=== PATIENT | male | born 1990 | race Hispanic/Latino ===

== ENCOUNTER 2020-11-03 13:04 | Emergency (ER) | payer OTHER ==
--- NOTE | 2020-11-03 15:24 | ER ---
Nurse's Notes [facility] Name: Pj Hughes Age: 30 yrs Sex: Male : 1990 Arrival Date: 11/03/2020 Time: 13:07 Bed Waiting Private MD: Diagnosis: Presentation: 11/03 13:28 Chief complaint: Patient states: SOB, cough, and sore throat x 1 week. aa5 13:28 Coronavirus screen: Client denies travel out of the [place] in the last 14 days. cough aa5 unrelated to allergies, shortness of breath, Client presents with at least one sign or symptom that may indicate coronavirus-19. Standard/surgical mask placed on the client. Provider contacted for isolation considerations. Ebola Screen: Patient negative for fever greater than or equal to 101.5 degrees Fahrenheit, and additional compatible Ebola Virus Disease symptoms. Initial Sepsis Screen: Does the patient meet any 2 criteria? No. Patient's initial sepsis screen is negative. Does the patient have a suspected source of infection? No. Patient's initial sepsis screen is negative. Risk Assessment: Do you want to hurt yourself or someone else? Patient reports no desire to harm self or others. Onset of symptoms was September 2020. 13:28 Method Of Arrival: Ambulatory aa5 13:28 Acuity: SAMANTHA 3 aa5 Historical: - Allergies: 13:28 Sulfa (Sulfonamide Antibiotics); aa5 - PMHx: 13:28 None; aa5 - PSHx: 13:28 None; aa5 - Immunization history:: Flu vaccine is not up to date. - Social history:: Smoking status: Patient denies any tobacco usage or history of. Vital Signs: 13:28 BP 110 / 65; Pulse 86; Resp 18 S; Temp 98.5(O); Pulse Ox 98% on R/A; Weight 70.31 kg aa5 (R); Height 5 ft. 9 in. (175.26 cm) (R); Pain 5/10; 13:28 Body Mass Index 22.89 (70.31 kg, 175.26 cm) aa5 ED Course: 13:07 Patient arrived in ED. rg4 13:27 Arm band placed on. aa5 13:30 Triage completed. aa5 Administered Medications: No medications were administered Outcome: 15:23 Patient left the ED. dm5 Signatures: Rachel Pride, RN RN dm5 Ifeoma Sykes, RN RN aa5 Margi Soto4
[2020-11-03 15:38] VITALS: BP 110/65; TEMP 98.5; O2SAT 98
== END 2020-11-03 15:23 | disposition left against medical advice (07) ==
LOC: ER 13:04
DX: Z53.21 Procedure and treatment not carried out due to patient leaving prior to being seen by health care provider (principal)
CPT/HCPCS: 99281

== ENCOUNTER 2021-03-10 17:01 | Emergency (ER) | payer OTHER, SELFPAY ==
--- OUTSIDE RECORDS SUMMARY | 2021-03-10 17:13 | XMS REPORT | Continuity of Care Document ---
:1990 Author Organization [facility] t Address [address] [place] [address] Care Team Providers Name Role Phone Asked, No Pcp Primary Care Physician Unavailable Ángel UMANA Attending Clinician Payers Payer Name Policy Type Policy Effective Date Expiration Date Sour ce Number [facility] [id number] 2020 [place] CHOICE 00:00:00 [facility]ET[facility]AC[facility]x [id number] 2020-Pr esentExchange Problems This patient has no known problems. Allergies, Adverse Reactions, Alerts Allergy Allergy Status Severity Reaction(s) Onset Inactive Treating Comm ents Source Name Type Date Date Clinician Sulfa Propensi Active Anaphylaxis Keyur feliciano (Sulfona ty to 04 Methodi mide adverse 00:00: st Antibiot reaction 00 ics) s to drug Social History Social Habit Start Date Stop Date Quantity Comments Source Tobacco use and 2020-11-03 2020-11-03 Never used [facility] ethodist exposure 00:00:00 00:00:00 Alcohol intake 2020-11-03 2020-11-03 Current drinker [place] [facility] 00:00:00 00:00:00 of alcohol (finding) Sex Ass[birth year] [facility] ethodist 00:00:00 00:00:00 Smoking Status Start Date Stop Date Source Current every day smoker 2020-11-03 00:00:00 Keyur feliciano [facility] Medications Ordered Filled Start Stop Current Ordering Indication Dosage Frequency Signature Comments Components Source Medication Medication Date Date Medication? Clinician (SIG) Name Name azithromyci Yes 250mg QD Take 1 Keyur jodie n 1-04 tablet Methodi (Zithromax 00:00: ([address] Z-Hayes) 250 00 total) by MG tablet mouth daily. Take 2 tablets the first day, then 1 tablet daily for 4 days. benzonatate 100mg Q8H Take 1 Craig zambrano (TESSALON) 11-03 capsule Metho di 100 MG 00:00: 23:59 ([address] capsule 00 :00 total) by mouth every 8 (eight) hours for 30 days. Vital Signs Vital Name Observation Time Observation Value Comments Source Systolic blood 2020-11-03 18:43:00 114 mm[Hg] Davon n [facility] pressure Diastolic blood 2020-11-03 18:43:00 61 mm[Hg] Mindy nicholson [facility] pressure Heart rate 2020-11-03 18:43:00 65 /min Bradley Pozo Body temperature 2020-11-03 18:43:00 36.94 Aminata Th[place]ago [place] [facility] Respiratory rate 2020-11-03 18:43:00 16 /min Thi[facility] [place] [facility] Oxygen saturation in 2020-11-03 18:43:00 98 /min Bradley Pozo Arterial blood by Pulse oximetry Body height 2020-11-03 17:31:00 175.3 cm Bradley Pozo Body weight 2020-11-03 17:31:00 68.04 kg Bradley Pozo BMI 2020-11-03 17:31:00 22.15 kg/m2 Bradley Pozo Procedures Procedure Date / Time Performed Performing Clinician Sourc e RESPIRATORY PATHOGEN 2020-11-03 17:40:00 Orlin Chilel PANEL WITH COVID-19 XR CHEST 1 VW 2020-11-03 17:39:07 Orlin Chilel odist Plan of Care Planned Activity Planned Date Details Comments Source Future Scheduled 2021-05-31 INFLUENZA VACCINE Davon reeves [facility] Test 00:00:00 [code = INFLUENZA VACCINE] Future Scheduled 2006 Hepatitis C Bradley ruby Test 00:00:00 screening (procedure) [code = 915963371] Future Scheduled 2004 COVID-19 VACCINE (1) Keyur feliciano [facility] Test 00:00:00 [code = COVID-19 VACCINE (1)] Encounters Start End Encounter Admission Attending Care Care Encounter Source Date/Time Date/Time Type Type Clinicians Facility Department ID 2020-11-03 2020-11-03 Emergency [facility] CHILEL [facility] [id number] [place] 00:00:00 00:00:[address] Results Test Description Test Time Test Comments Results Result [facility] e Comments XR Chest 1 Vw [facility] [place] [address] 17:53:56 Incoming - 11/03/2020 5:57 PM CST EXAMINATION: XR CHEST 1 VWINDICATION: coughCOMPARISON: 07/26/2006IMPRESSION:No acute airspace disease or pulmonary edema. No pleural effusion or pneumothorax.Normal cardiomediastinal silhouette.[id number]
[2021-03-10] MEDS ORDERED: LIDOCAINE 1% MPF 5 ML VIAL ONE (18:03)
[2021-03-10] MEDS ORDERED: TETANUS & DIPHTHERIA TOX,ADULT 0.5 ML VIAL ONE (18:03)
--- NOTE | 2021-03-10 18:14 | ER ---
Nurse's Notes [facility] Name: Pj Hughes Age: 30 yrs Sex: Male : 1990 Arrival Date: 03/10/2021 Time: 17:01 Bed 12 Private MD: Diagnosis: Laceration without foreign body of left hand Presentation: 03/10 17:18 Chief complaint: Patient states: i was opening something with a box knife, it slipped tw2 and got me right on the top of my LEFT hand. i had super glue on it and then my mom told me it would get infected so i pulled it off and then it started gushing blood. it happened about an hour ago. Coronavirus screen: At this time, the client does not indicate any symptoms associated with coronavirus-19. Ebola Screen: Patient denies travel to an Ebola-affected area in the 21 days before illness onset. Complicating Factors: There are no complicating factors for this patient. Initial Sepsis Screen: Does the patient meet any 2 criteria? No. Patient's initial sepsis screen is negative. Does the patient have a suspected source of infection? No. Patient's initial sepsis screen is negative. Risk Assessment: Do you want to hurt yourself or someone else? Patient reports no desire to harm self or others. Onset of symptoms was March 10, 2021 at 17:20. 17:18 Method Of Arrival: Ambulatory tw2 17:18 Acuity: SAMANTHA 4 tw2 Triage Assessment: 17:21 General: Appears in no apparent distress. Behavior is calm, cooperative, appropriate tw2 for age. Injury Description: Laceration sustained to dorsum of left hand. Historical: - Allergies: 17:21 Sulfa (Sulfonamide Antibiotics); tw2 - Home Meds: 17:21 Zoloft Oral [Active]; Seroquel Oral [Active]; tw2 - PMHx: 17:21 Depression; Schizophrenia; tw2 - PSHx: 17:21 None; tw2 - Immunization history:: Last tetanus immunization: unknown. - Social history:: Smoking status: . Screenin:35 Abuse screen: Denies threats or abuse. Denies injuries from another. Nutritional ca1 screening: No deficits noted. Tuberculosis screening: No symptoms or risk factors identified. Fall Risk None identified. Assessment: 17:35 General: Appears in no apparent distress. comfortable, Behavior is calm, cooperative, ca1 appropriate for age. Pain: Complains of pain in dorsum of left hand Pain currently is 02 out of 10 on a pain scale. Neuro: Level of Consciousness is awake, alert, obeys commands, Oriented to person, place, time, situation. Derm: Skin is healthy with good turgor, Skin is pink, warm \T\ dry. Musculoskeletal: Circulation, motion, and sensation intact. Capillary refill < 3 seconds. Injury Description: Laceration sustained to dorsum of left hand is clean, 0.5 to 2.5 cm long, bleeding moderately, was sustained 30-60 minutes ago. is bleeding a small amount. 18:24 Reassessment: Patient appears in no apparent distress at this time. Patient is alert, ca1 oriented x 3, equal unlabored respirations, skin warm/dry/pink. Vital Signs: 17:18 BP 99 / 66; Pulse 65; Resp 17; Temp 97.9(TE); Pulse Ox 98% on R/A; tw2 18:24 BP 106 / 72; Pulse 62; Resp 16 S; Pulse Ox 99% on R/A; ca1 ED Course: 17:01 Patient arrived in ED. mr 17:20 Triage completed. tw2 17:21 Arm band placed on. tw2 17:35 Hannah Roblero, RN is Primary Nurse. ca1 17:35 Patient has correct armband on for positive identification. ca1 17:38 Mony Hoff FNP-C is [facility]. kb 17:38 Floyd Houser MD is Attending Physician. kb 18:00 Patient did not have IV access during this emergency room visit. Wound care: to ca1 laceration located on dorsum of left hand was cleaned with Hibiclens, Patient tolerated well. 18:21 Assist provider with laceration repair on dorsum of left hand that was 2.5 cm. or less ca1 using sutures. Set up tray. Performed by Mony LR Dressed with 4X4s, Rukhsana, Patient tolerated well. 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 Exp: ca1 04/05/2022. Lot #: [id number]. } Route: IM; Site: left deltoid; 18:20 Follow up: Response: No adverse reaction ca1 18:05 Drug: Lidocaine (1 %) 1 vials {Note: by NP. Ariana} Volume: 5 ml; Route: Infiltration;ca1 Outcome: 18:12 Discharge ordered by MD. puckett 18:24 Discharged to home ambulatory. ca1 18:24 Condition: stable 18:24 Discharge instructions given to patient, Instructed on discharge instructions, follow up and referral plans. wound care, Demonstrated understanding of instructions, follow-up care, wound care. 18:24 Patient left the ED. ca1 Signatures: Mony Hoff, ADELINE NAJERA-Mary Sidhu mr Martita Butler, RN RN tw2 Hannah Roblero RN RN ca1
--- NOTE | 2021-03-10 18:14 | EDPHYS ---
Physician Documentation [facility] Name: Pj Hughes Age: 30 yrs Sex: Male : 1990 Arrival Date: 03/10/2021 Time: 17:01 Bed 12 Private MD: ED Physician Floyd Houser HPI: 03/10 18:21 This 30 yrs old Male presents to ER via Ambulatory with complaints of kb Laceration To Hand. 18:21 The patient has a laceration related to: working, occurred at work, and there are no kb complicating factors. The injury was accidental. The laceration(s) is(are) located on the dorsum of left hand. Onset: The symptoms/episode began/occurred today. Associated signs and symptoms: Pertinent positives: heavy bleeding, Pertinent negatives: deformity, dizziness, loss of consciousness, numbness distal to injury, suspected foreign body. The patient has not experienced similar symptoms in the past. The patient has not recently seen a physician. Pt reports he cut his hand at work and it was bleeding a lot so he came to get it looked at. Historical: - Allergies: 17:21 Sulfa (Sulfonamide Antibiotics); tw2 - Home Meds: 17:21 Zoloft Oral [Active]; Seroquel Oral [Active]; tw2 - PMHx: 17:21 Depression; Schizophrenia; tw2 - PSHx: 17:21 None; tw2 - Immunization history:: Last tetanus immunization: unknown. - Social history:: Smoking status: . ROS: 18:17 Constitutional: Negative for fever, chills, and weight loss, MS/Extremity: Negative for kb injury and deformity. 18:17 Skin: Positive for laceration(s), of the dorsum of left hand. 18:17 All other systems are negative. Exam: 18:17 Constitutional: This is a well developed, well nourished patient who is awake, alert, kb and in no acute distress. Head/Face: Normocephalic, atraumatic. ENT: Moist Mucous membranes Respiratory: Respirations even and unlabored. No increased work of breathing, no retractions or nasal flaring. MS/ Extremity: Pulses equal, no cyanosis. Neurovascular intact. Full, normal range of motion. Neuro: Awake and alert, GCS 15, oriented to person, place, time, and situation. Moves all extremities. Normal gait. Psych: Awake, alert, with orientation to person, place and time. Behavior, mood, and affect are within normal limits. 18:17 Skin: injury, laceration(s), the wound is approximately 1.5 cm(s), of the dorsum of left hand, that can be described as clean, no foreign body, linear, without bleeding. Vital Signs: 17:18 BP 99 / 66; Pulse 65; Resp 17; Temp 97.9(TE); Pulse Ox 98% on R/A; tw2 18:24 BP 106 / 72; Pulse 62; Resp 16 S; Pulse Ox 99% on R/A; ca1 Laceration: 18:11 Wound Repair of 1.5cm ( 0.6in ) subcutaneous laceration to dorsum of left hand. Linear kb shaped.. Distal neuro/vascular/tendon intact. Anesthesia: Wound infiltrated with 1 mls of 1% lidocaine. Wound prep: Moderate cleansing with hibiclenz by me, Wound irrigation with saline by me. Skin closed with 2 5-0 Prolene using simple sutures and sterile technique. Patient tolerated well. MDM: 17:38 Patient medically screened. kb 18:12 Data reviewed: vital signs, nurses notes. Data interpreted: Pulse oximetry: on room air kb is 98 %. Interpretation: normal. Counseling: I had a detailed discussion with the patient and/or guardian regarding: the historical points, exam findings, and any diagnostic results supporting the discharge/admit diagnosis, the need for outpatient follow up, a family practitioner, to return to the emergency department if symptoms worsen or persist or if there are any questions or concerns that arise at home. 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 Exp: ca1 04/05/2022. Lot #: [id number]. } Route: IM; Site: left deltoid; 18:20 Follow up: Response: No adverse reaction ca1 18:05 Drug: Lidocaine (1 %) 1 vials {Note: by H[address].} Volume: 5 ml; Route: Infiltration;ca1 Disposition: 03/10/21 18:12 Discharged to Home. Impression: Laceration without foreign body of left hand. - Condition is Stable. - Discharge Instructions: Laceration Care, Adult, [id number]. - Medication Reconciliation Form, Thank You Letter, Antibiotic Education, Prescription Opioid Use, Work release form form. - Follow up: Emergency Department; When: As needed; Reason: Worsening of condition. Follow up: Private Physician; When: 2 - 3 days; Reason: Recheck today's complaints, Continuance of care, Re-evaluation by your physician. Addendum: 03/11/2021 19:05 Co-signature as Attending Physician, Floyd Houser MD. r n Signatures: Mony Hoff, DIRECTOR [employer]-C DIRECTOR FEDERAL-Ckb Floyd Houser MD MD rn Martita Butler RN RN tw2 Hannah Roblero RN RN ca1 Corrections: (The following items were deleted from the chart) 03/10 18:24 18:12 03/10/2021 18:12 Discharged to Home. Impression: Laceration without foreign body ca1 of left hand. Condition is Stable. Forms are Medication Reconciliation Form, Thank You Letter, Antibiotic Education, Prescription Opioid Use. Follow up: Emergency Department; When: As needed; Reason: Worsening of condition. Follow up: Private Physician; When: 2 - 3 days; Reason: Recheck today's complaints, Continuance of care, Re-evaluation by your physician. kb
[2021-03-10 18:35] VITALS: TEMP 97.9
[2021-03-10 18:36] VITALS: BP 106/72; O2SAT 99
== END 2021-03-10 18:24 | disposition home or self-care (01) ==
LOC: ER 17:01
PROC: 0JQK0ZZ Repair Left Hand Subcutaneous Tissue and Fascia, Open Approach (ICD-10-PCS; principal; 2021-03-10)
DX: S61.412A Laceration without foreign body of left hand, initial encounter (principal); W45.8XXA Other foreign body or object entering through skin, initial encounter; Y93.89 Activity, other specified; Y92.89 Other specified places as the place of occurrence of the external cause; Y99.8 Other external cause status; Z23 Encounter for immunization; Z88.2 Allergy status to sulfonamides; F20.9 Schizophrenia, unspecified
CPT/HCPCS: 90471; 90714; 99283

== ENCOUNTER 2021-09-15 18:41 | Emergency (ER) | payer OTHER, SELFPAY ==
--- OUTSIDE RECORDS SUMMARY | 2021-09-15 18:43 | XMS REPORT | Continuity of Care Document ---
:1990 Author Organization [facility] t Address [address] [place] [address] [address] [place] [address] Care Team Providers Name Role Phone JANE GARCIA Attending Clinician Unavailable SANTOS CHILEL Attending Clinician Unavailable Payers Payer Name Policy Type Policy Number Effective Date Expiration Date S ource [employer] [id number] 2021 2021 COMPENSATION 00:00:00 00:00:00 Problems This patient has no known problems. Allergies, Adverse Reactions, Alerts This patient has no known allergies or adverse reactions. Medications This patient has no known medications. Procedures This patient has no known procedures. Encounters Start End Encounter Admission Attending Care Care Encounter Source Date/Time Date/Time Type Type Clinicians Facility Department ID 2021-05-08 Outpatient JOSE GOLISANO [facility] [id number] [place] 01:05:01 [facility] 2021-04-15 Outpatient GOLISANO [facility] [id number] [place] 10:39:15 [facility] 2020-11-03 2020-11-03 Emergency [facility] [id number] [place] 00:00:00 00:00:[address] Results This patient has no known results.
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
[2021-09-15] MEDS ORDERED: dexAMETHasone 4 MG TAB ONE (20:01)
[2021-09-15 21:38] LABS: SARS-COV-2 RT PCR NEGATIVE (NEGATIVE)
[2021-09-15 22:09] VITALS: BP 117/64; TEMP 98.2; O2SAT 97
== END 2021-09-15 20:07 | disposition home or self-care (01) ==
LOC: ER 18:41
DX: J02.9 Acute pharyngitis, unspecified (principal); Z88.2 Allergy status to sulfonamides
CPT/HCPCS: 0240U; 87070; 87081; 99283; J8540

== ENCOUNTER 2021-10-22 12:23 | Emergency (ER) | payer SELFPAY ==
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
[2021-10-22 16:39] VITALS: BP 138/96; TEMP 97.6; O2SAT 98
== END 2021-10-22 16:27 | disposition home or self-care (01) ==
LOC: ER 12:23
DX: U07.1 COVID-19 (principal); Z88.2 Allergy status to sulfonamides
CPT/HCPCS: 99281; U0003

== ENCOUNTER 2022-01-16 11:56 | Emergency (ER) | payer SELFPAY ==
--- OUTSIDE RECORDS SUMMARY | 2022-01-16 11:59 | XMS REPORT | Continuity of Care Document ---
:1990 Author Organization [facility] t Address [address] [place] [address] [address] [place] [address] Care Team Providers Name Role Phone JANE GARCIA Attending Clinician Unavailable SANTOS CHILEL Attending Clinician Unavailable Payers Payer Name Policy Type Policy Number Effective Date Expiration Date S ource [employer] [id number] 2021 2021 COMPENSATION 00:00:00 00:00:00 Problems This patient has no known problems. Allergies, Adverse Reactions, Alerts This patient has no known allergies or adverse reactions. Medications This patient has no known medications. Procedures This patient has no known procedures. Encounters Start End Encounter Admission Attending Care Care Encounter Source Date/Time Date/Time Type Type Clinicians Facility Department ID 2021-05-08 Outpatient JOSE [facility] [id number] [place] 01:05:01 [facility] 2021-04-15 Outpatient [facility] [id number] [place] 10:39:15 [facility] 2020-11-03 2020-11-03 Emergency SANTOS CHILEL [facility] [id number] [place] 00:00:00 00:00:[id number] Results This patient has no known results.
[2022-01-16 13:16] LABS: SARS-COV-2 RT PCR NEGATIVE (NEGATIVE)
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
[2022-01-16 13:57] VITALS: TEMP 98.2; O2SAT 99
[2022-01-16 13:58] VITALS: BP 123/65
== END 2022-01-16 13:37 | disposition home or self-care (01) ==
LOC: ER 11:56
DX: J06.9 Acute upper respiratory infection, unspecified (principal); Z20.822 Contact with and (suspected) exposure to COVID-19; F20.9 Schizophrenia, unspecified; Z88.2 Allergy status to sulfonamides
CPT/HCPCS: 0240U; 99283

== ENCOUNTER 2022-09-25 11:36 | Emergency (ER) | payer SELFPAY ==
--- OUTSIDE RECORDS SUMMARY | 2022-09-25 11:38 | XMS REPORT | Continuity of Care Document ---
:[address] [facility] t Address [address] [place] [address] Care Team Providers Name Role Phone Asked, No Pcp Primary Care Physician Unavailable JANE GARCIA Attending Clinician Unavailable SANTOS CHILEL Attending Clinician Unavailable Payers Payer Name Policy Type Policy Number Effective Date Expiration Date S ource [employer] [id number] 2021 2021 COMPENSATION 00:00:00 00:00:00 Problems This patient has no known problems. Allergies, Adverse Reactions, Alerts Allergy Allergy Status Severity Reaction(s) Onset Inactive Treating Comm ents Source Name Type Date Date Clinician Sulfa Propensi Active Anaphylaxis [facility] (Sulfona ty to 11-03 [facility] mide adverse 00:00: Hospita Antibiot reaction 00 l ics) s to drug Social History Social Habit Start Date Stop Date Quantity Comments Source History of Smokes tobacco Denominational tobacco use daily Hospital Tobacco use and 2020-11-03 2020-11-03 Smokeless tobacco [facility] exposure 00:00:00 00:00:00 non-user Hospital Alcohol intake 2020-11-03 2020-11-03 Current drinker [facility] 00:00:00 00:00:00 of alcohol Hospital (finding) Sex Assigned At [birth year] Denominational 00:00:00 00:00:00 Hospital Smoking Status Start Date Stop Date Source Smokes tobacco daily 2020-11-03 00:00:00 [facility] Medications Ordered Filled Start Stop Current Ordering Indication Dosage Frequency Signature Comments Components Source Medication Medication Date Date Medication? Clinician (SIG) Name Name azithromyci Yes 250mg QD Take 1 [facility] n 1-[address] (Zithromax 00:00: (250 mg [facility]osp [facility]-Hayes) 250 00 total) by l MG tablet mouth daily. Take 2 tablets the first day, then 1 tablet daily for 4 days. Procedures This patient has no known procedures. Plan of Care Planned Activity Planned Date Details Comments Source Future Scheduled 2022-09-04 COVID-19 VACCINE (#1) [facility] Test 07:06:30 [code = COVID-19 VACCINE (#1)] Future Scheduled 2022-09-04 Pneumococcal Vaccine: [facility] Test 07:06:30 Pediatrics (0 to 5 Years) and At-Risk Patients (6 to 64 Years) (1 - PCV) [code = Pneumococcal Vaccine: Pediatrics (0 to 5 Years) and At-Risk Patients (6 to 64 Years) (1 - PCV)] Future Scheduled 2022-09-04 Hepatitis C screening [facility] Test 07:06:30 (procedure) [code = [id number]] Future Scheduled 2022-09-04 INFLUENZA VACCINE [facility] Test 07:06:30 [code = INFLUENZA VACCINE] Future Scheduled 2022-09-04 HEPATITIS B VACCINES Met [facility] Test 07:06:30 (1 of 3 - 3-dose series) [code = HEPATITIS B VACCINES (1 of 3 - 3-dose series)] Encounters Start End Encounter Admission Attending Care Care Encounter Source Date/Time Date/Time Type Type Clinicians Facility Department ID 2021-05-08 Outpatient JOSE ED [facility] [id number] [place] 01:05:01 [facility] 2021-04-15 Outpatient ED [facility] [id number] [place] 10:39:15 [facility] 2020-11-03 2020-11-03 Emergency SANTOS CHILEL [facility] [id number] [place] 00:00:00 00:00:[id number] Results This patient has no known results.
[2022-09-25 13:13] LABS: SARS-COV-2 RT PCR NEGATIVE (NEGATIVE)
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
[2022-09-25 14:41] VITALS: TEMP 98.7
[2022-09-25 14:42] VITALS: BP 120/66; O2SAT 99
== END 2022-09-25 14:31 | disposition home or self-care (01) ==
LOC: ER 11:36
DX: J06.9 Acute upper respiratory infection, unspecified (principal); Z20.822 Contact with and (suspected) exposure to COVID-19; Z88.2 Allergy status to sulfonamides
CPT/HCPCS: 0240U; 99282

== ENCOUNTER 2024-11-23 23:09 | Emergency (ER) | payer OTHER, SELFPAY ==
[2024-11-24] MEDS ORDERED: ACETAMINOPHEN 325 MG TABLET ONE (00:26)
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
[2024-11-24] MEDS ORDERED: HYDROCODONE/CHLORPHEN 5 ML/OSYR ONE (00:47)
[2024-11-24 04:59] VITALS: BP 107/69; TEMP 99.8; O2SAT 100
== END 2024-11-24 01:08 | disposition home or self-care (01) ==
LOC: ER 23:09
DX: B34.9 Viral infection, unspecified (principal)
CPT/HCPCS: 87070; 87081; 87804; 99284